=== PATIENT | male | born 1960 | race Caucasian/White ===

== ENCOUNTER 2018-01-09 17:11 | Inpatient (IN) | payer OTHER ==
[~2018-01-09] VITALS: Ht 175.3 cm; Wt 144.2 kg
[~2018-01-09 17:11] MED LIST: ALPRAZOLAM 0.50.5 MG PO; ASPIR-TRIN325 MG PO; CARDIZEM CD 18180 M3 PO; CLEOCIN T30 ML TOP; COUMADIN 4 MG TA4 M1 PO; FISH OIL 1,001000 M2 PO; HYDROCODON-ACE1 EAC7 PO; MULTIVITAMINS PO; NIACIN 500 MG500 MG PO; OLUX-E 0.05% F100 GM TP; SIMVASTATIN20 MG PO; SULFAMETHOXAZO1 EAC1 PO; ZESTORETIC 20-1 EAC3 PO
[2018-01-09] MEDS ORDERED: OMEPRAZOLE 20 M20 M1 PO (17:21)
[2018-01-09] MEDS ORDERED: CRESTOR5 MG PO (17:25)
[2018-01-09] MEDS ORDERED: HUMIRA40 MG/0.4 SUBQ (17:26)
[2018-01-09 17:56] LABS: ABSOLUTE BASOPHILS 0.1 thou/uL (0.0-0.2); ABSOLUTE EOSINOPHILS 0.3 thou/uL (0.0-0.7); ABSOLUTE LYMPHOCYTES 2.1 thou/uL (0.8-5.3); ABSOLUTE MONOCYTES 0.9 thou/uL (0.0-1.2); ABSOLUTE NEUTROPHILS 4.6 thou/uL (1.6-8.1); BASOPHILS 0.8 %; EOSINOPHILS 3.4 %; HEMATOCRIT 27.1 % (42.0-52.0); HEMOGLOBIN 8.9 gm/dL (14.0-18.0); LYMPHOCYTES 26.4 %; MCH 29.6 pg (26.0-34.0); MCHC 32.8 g/dL (28.0-37.0); MONOCYTES 10.8 %; MPV 7.4 fl. (7.2-11.1); NUCLEATED RBCS 0 /100WBC; PLATELET COUNT* 305 thou/uL (150-400); POLYS 58.6 %; RBC 3.01 mil/uL (4.50-6.00); RDW-CV 15.8 % (10.5-14.5); WBC 7.9 thou/uL (4.0-11.0)
[2018-01-09 18:05] LABS: APTT 43.2 Seconds (25.0-31.3); INR 4.5; PROTIME 45.4 Seconds (9.20-11.50)
[2018-01-09 18:07] LABS: ANION GAP 7 mmol/L (7-16); BUN 19 mg/dL (7-18); CALCIUM 8.7 mg/dL (8.5-10.1); CHLORIDE 104 mmol/L (98-107); CO2 28 mmol/L (21-32); CREATININE 1.2 mg/dL (0.6-1.3); GLUCOSE 116 mg/dL (70-99); POTASSIUM 3.4 mmol/L (3.5-5.1); SODIUM 139 mmol/L (136-145)
[2018-01-09 18:18] LABS: ALBUMIN 3.2 g/dL (3.4-5.0); ALKALINE PHOSPHATASE 32 U/L (46-116); LIPASE 87 U/L (73-393); MAGNESIUM 1.7 mg/dL (1.8-2.4); NT-PRO BRAIN NAT PEPTIDE 76 pg/mL (<300); SGOT 20 U/L (15-37); SGPT 32 U/L (30-65); TOTAL BILIRUBIN 0.4 mg/dL (<0.1-1.0); TOTAL PROTEIN 6.9 g/dL (6.4-8.2); TROPONIN-I LEVEL <0.06 ng/mL (<0.06)
[2018-01-09 21:14] VITALS: BP 104/43
[2018-01-09 21:30] VITALS: BP 121/70
[2018-01-09] MEDS ORDERED: COREG12.5 MG PO (22:23)
[2018-01-10] VITALS (7 sets, daily range): BP systolic 81–165; BP diastolic 36–71
[2018-01-10 04:29] LABS: HEMATOCRIT 22.9 % (42.0-52.0); HEMOGLOBIN 7.5 gm/dL (14.0-18.0)
[2018-01-10 04:36] LABS: CALCIUM 8.5 mg/dL (8.5-10.1); CREATININE 1.1 mg/dL (0.6-1.3); INR 3.2; MAGNESIUM 2.1 mg/dL (1.8-2.4); POTASSIUM 3.9 mmol/L (3.5-5.1); PROTIME 32.4 Seconds (9.20-11.50)
[2018-01-10 04:39] LABS: MCH 29.6 pg (26.0-34.0); MCHC 32.9 g/dL (28.0-37.0); MCV 90.1 fL (80.0-100.0); MPV 7.6 fl. (7.2-11.1); RBC 2.54 mil/uL (4.50-6.00); RDW-CV 15.8 % (10.5-14.5); WBC 5.7 thou/uL (4.0-11.0)
[2018-01-11 00:08] VITALS: BP 150/68
[2018-01-11 04:55] LABS: ABSOLUTE EOSINOPHILS 0.1 thou/uL (0.0-0.7); ABSOLUTE LYMPHOCYTES 1.8 thou/uL (0.8-5.3); ABSOLUTE MONOCYTES 0.6 thou/uL (0.0-1.2); BASOPHILS 0.6 %; EOSINOPHILS 2.6 %; HEMATOCRIT 23.7 % (42.0-52.0); HEMOGLOBIN 7.6 gm/dL (14.0-18.0); LYMPHOCYTES 32.4 %; MCHC 31.8 g/dL (28.0-37.0); MONOCYTES 11.4 %; MPV 7.9 fl. (7.2-11.1); NUCLEATED RBCS 0 /100WBC; PLATELET COUNT* 253 thou/uL (150-400); RBC 2.61 mil/uL (4.50-6.00); RDW-CV 16.1 % (10.5-14.5); WBC 5.7 thou/uL (4.0-11.0)
[2018-01-11 05:01] LABS: PROTIME 14.1 Seconds (9.20-11.50)
[2018-01-11 05:08] LABS: CALCIUM 8.5 mg/dL (8.5-10.1); POTASSIUM 4.1 mmol/L (3.5-5.1)
[2018-01-11 05:23] VITALS: BP 139/66
[2018-01-11 06:02] LABS: INR 1.4
[2018-01-11 08:55] VITALS: BP 169/76
--- NOTE | 2018-01-11 10:12 | EKG ---
[place] [address] ELECTROCARDIOGRAM REPORT Name: MARIBEL WHARTON Room: [address] ADM IN .R.#: [id number] Admission: 01/09/18 Attend Phys: Jose Florence MD Discharge: Date of : 56 Report #: [id number] THIS REPORT FOR: //name// [facility] ED Test Date: 2018-01-09 Test Time: 17:19:38 Pat Name: MARIBEL WHARTON Department: Room: [facility] Gender: Hand Coremaker: Sami LONDONO : 1960 Requested By: Patricia Emerson Order Number: [id number] MD: Jamie Chamorro Measurements Intervals [place] Rate: 56 P: 3 MO: 161 QRS: -6 QRSD: 98 T: 4 QT: 407 QTc: 393 Interpretive Statements Sinus rhythm Atrial premature complexes Compared to ECG 05/12/2008 14:10:21 Atrial premature complex(es) now present Sinus bradycardia no longer present Electronically Signed On 01-11-2018 10:12:18 SANDING MACHINE OPERATOR by Jamie Chamorro [email or web address] <ELECTRONICALLY SIGNED> By: Jamie Chamorro MD, FACC 01/11/18 1012 1719 1719 Jamie Chamorro MD, FAC /EPI
[2018-01-11 12:00] VITALS: BP 127/60
[2018-01-11 16:14] VITALS: BP 171/97
[2018-01-11 20:00] VITALS: BP 151/77
[2018-01-12 00:28] VITALS: BP 133/52
[2018-01-12 04:34] VITALS: BP 123/50
[2018-01-12 05:50] LABS: HEMATOCRIT 24.4 % (42.0-52.0); HEMOGLOBIN 7.8 gm/dL (14.0-18.0); MCH 28.9 pg (26.0-34.0); MCV 90.2 fL (80.0-100.0); MPV 7.7 fl. (7.2-11.1); RBC 2.71 mil/uL (4.50-6.00); RDW-CV 15.9 % (10.5-14.5); WBC 6.3 thou/uL (4.0-11.0)
[2018-01-12 06:02] LABS: CALCIUM 8.5 mg/dL (8.5-10.1); CREATININE 0.9 mg/dL (0.6-1.3); POTASSIUM 3.5 mmol/L (3.5-5.1)
[2018-01-12 08:30] VITALS: BP 140/83
[2018-01-12 16:54] VITALS: BP 125/62
[2018-01-12 20:00] VITALS: BP 111/57
[2018-01-13] VITALS: BP 151/70
[2018-01-13 04:00] VITALS: BP 108/49
[2018-01-13 05:30] LABS: HEMATOCRIT 24.7 % (42.0-52.0); HEMOGLOBIN 8.2 gm/dL (14.0-18.0); MCH 29.6 pg (26.0-34.0); MCV 89.8 fL (80.0-100.0); MPV 7.5 fl. (7.2-11.1); RBC 2.76 mil/uL (4.50-6.00); RDW-CV 16.5 % (10.5-14.5); WBC 5.6 thou/uL (4.0-11.0)
[2018-01-13 05:41] LABS: INR 1.1; PROTIME 11.4 Seconds (9.20-11.50)
[2018-01-13 05:56] LABS: CALCIUM 8.7 mg/dL (8.5-10.1); MAGNESIUM 1.6 mg/dL (1.8-2.4); POTASSIUM 3.6 mmol/L (3.5-5.1); TOTAL BILIRUBIN 0.3 mg/dL (<0.1-1.0); TOTAL PROTEIN 5.8 g/dL (6.4-8.2)
[2018-01-13 08:30] VITALS: BP 99/69
[2018-01-13 11:23] VITALS: BP 146/65
[2018-01-13] MEDS ORDERED: CARVEDILOL12.5 MG PO (14:19)
[2018-01-13] MEDS ORDERED: ZESTORETIC 20-1 EAC3 PO (14:19)
[2018-01-13] MEDS ORDERED: PRILOSEC 20 MG20 MG PO (14:58)
[2018-01-13 14:59] VITALS: BP 146/65
--- NOTE | 2018-01-14 16:10 | PROC ---
[address] [address] PROCEDURE REPORT Name: MARIBEL WHARTON Room: [address] IN ..#: [id number] Admission: 01/09/18 Attend Phys: Jose Florence MD Discharge: 01/13/18 Date of : 56 Report #: [id number] THIS REPORT FOR: //name// CC: Douglas Florence MD DATE OF SERVICE: 01/10/2018 REFERRING PHYSICIAN: Jose Florence MD PROCEDURE PERFORMED: Esophagogastroduodenoscopy with APC treatment of single angioectasia in the second portion of duodenum. SEDATION USED: Monitored anesthesia care with propofol. SPECIMEN RETRIEVED: None. INDICATIONS: Just pleasant 57-year-old white male who was admitted to hospital with melena and associated anemia. His INR was markedly elevated as well. He has received some vitamin K and is now in for endoscopic evaluation. See consultation for further details. PHYSICAL EXAMINATION: GENERAL: A pleasant 57-year-old gentleman who is awake and alert. CARDIOPULMONARY: Benign. ABDOMEN: Soft and not tender. No rebound or guarding noted. DESCRIPTION OF PROCEDURE: After obtaining informed consent, once the patient was adequately sedated, the Olympus video scope was advanced under direct vision into the esophagus, which appeared completely normal. There was no esophagitis, rings or webs strictures. Stomach was then entered and examined in its entirety and revealed normal appearing antrum, body, as well as cardia, fundus on retroflex examination. Pylorus widely patent revealing a normal duodenal bulb and a small AVM within the second portion of duodenum with small amount of blood noted within the same. No active bleeding was noted. A StraightFire APC probe was then advanced through the scope into the second portion of duodenum where the angioectasia was then obliterated using 20 hatfield at 1.2 L per minute. No bleeding ensued. Scope was withdrawn. The patient was sent to recovery in stable condition. IMPRESSION: 1. Single duodenal angioectasia obliterated [place] [address] PROCEDURE REPORT Name: MARIBEL WHAROTN Room: [address] IN ..#: [id number] Admission: 01/09/18 Attend Phys: Jose Florence MD Discharge: 01/13/18 Date of : 56 Report #: [id number] 2. Otherwise normal upper endoscopy. RECOMMENDATIONS: 1. We will give the patient a heart healthy diet today and hold his Coumadin at this point in time. 2. We will prep him tomorrow for colonoscopy to be done on Friday if his INR is more acceptable. I would not only want to treat any bleeding potential sites within the colon, but also remove any polyps the same time. 3. I will discuss findings and recommendations with the patient as well. He is agreeable to the same. <ELECTRONICALLY SIGNED> By: Min Gutierrez DO 01/14/18 1610 1831 0331Min Gutierrez DO /nt
--- NOTE | 2018-01-14 16:11 | CON ---
[address] [address] CONSULTATION Name: MARIBEL WHARTON Room: [address] IN .R.#: [id number] Admission: 01/09/18 Attend Phys: Jose Florence MD Discharge: 01/13/18 Date of : 56 Report #: [id number] THIS REPORT FOR: //name// CC: Douglas Florence MD DATE OF SERVICE: 01/10/2018 GI CONSULTATION REFERRING PHYSICIAN: Dr. Jose Florence REASON FOR CONSULTATION: 1. Acute anemia with associated orthostasis and associated melena -- evaluate for problems related to upper GI tract, possibly lower GI tract. 2. Elevated INR for which the patient ____ for peripheral vascular disease. 3. Hidradenitis suppurativa, recurrent chronic immunosuppression for the same. 4. Hypertension. 5. Diabetes. 6. Peripheral vascular disease. RECOMMENDATIONS: 1. We will proceed with upper endoscopy today. I have discussed the nature, risks, benefits, alternatives of the procedure with the patient as well. He is agreeable to the same. 2. Further recommendation will be made thereafter. HISTORY OF PRESENT ILLNESS: This is a very pleasant 57-year-old white male who presented to his primary care provider with complaints of shortness of breath, lightheadedness and dizziness and was found to have anemia with elevated INR. He has also had some problem with melena. He has been on chronic warfarin for lower extremity bypass. He normally gets his INR checked on a monthly basis and this is the first time he had been checked since he started his PPI. It had been controlled fairly well before that. He denies any complaints of any dysphagia, aphagia, postprandial pain or any problem with reflux or indigestion. He was recently begun on some omeprazole to see if this helps some of his cough and hoarseness by an ENT physician. He denies any problem with his bowels or bowel frequency. He states his last colonoscopy was done within the last couple of years, demonstrating a few polyps. He is admitted to the hospital for further evaluation and treatment. ALLERGIES: [place] [address] CONSULTATION Name: MARIBEL WHARTON Room: [address]#: [id number] Admission: 01/09/18 Attend Phys: Jose Florence MD Discharge: 01/13/18 Date of : 56 Report #: [id number] MEDICATIONS: At home include diltiazem, hydrocodone, aspirin, multivitamin, omeprazole, Humira, niacin, alprazolam, lisinopril with hydrochlorothiazide. He is on sulfa. He is on trimethoprim and sulfamethoxazole, topical clindamycin, warfarin, fish oil, rosuvastatin and Coreg. PAST MEDICAL AND SURGICAL HISTORY: Remarkable for hypertension and problem with heart rhythm issues, hidradenitis suppurativa and diabetes. He has had previous problems with herniated disk surgery. He has had cholecystectomy, ulnar neuropathy. He has had a fistula repair by Dr. Americo Lott. He has had previous bypass surgery and stents placed in 2009. SOCIAL HISTORY: The patient does smoke a half a pack per day, does not drink alcohol on a regular basis. FAMILY HISTORY: Negative for malignancy. PHYSICAL EXAMINATION: GENERAL: A pleasant 57-year-old gentleman who is awake and alert. CARDIOPULMONARY: Revealed a regular rate and rhythm. LUNGS: Clear. ABDOMEN: Soft, not tender. No rebound or guarding noted. LABORATORY TEST: Revealed a white count of 7.9; hemoglobin 8.9; platelet count 305,000; MCV is 90; RDW is 15.8. His protime is 45.5 with INR of 4.5. Sodium 139, potassium 3.4, chloride 104, bicarb is 28, his BUN is 19, creatinine 1.2. His GFR is 62. Total bilirubin 0.4, alkaline phosphatase is 32, AST 20, ALT 32. His albumin is 3.2. DISCUSSION: At the present time, we will proceed with upper endoscopy today and make further recommendations thereafter. I have discussed the plans with the patient as well and he is agreeable to the same. <ELECTRONICALLY SIGNED> By: Min Gutierrez DO 01/14/18 1611 1829 0255Min Gutierrez DO /nt
--- NOTE | 2018-01-16 11:13 | PATH ---
[address] [address] PATHOLOGY RPT PROCEDURE Name: MARIBEL WHARTON Room: [address] IN M.R.#: [id number] Admission: 01/09/18 Date of : 56 Discharge: 01/13/18 Report #: [id number] Path Case #: [id number] [facility] Accession Number: [id number] . 01 Material submitted: . MID-TRANSVERSE COLON POLYP . 01 Clinical history: . None provided . 02 Diagnosis: Mid transverse colon polyp, biopsy: - Tubular adenoma, negative for high-grade dysplasia. (MAP:[facility] 01/14/2018) QTP/01/14/2018 . 02 Electronically signed: . Jamie Tello MD, Pathologist NPI- [id number] . 01 Gross description: . Received in formalin labeled "Maribel Wharton, mid transverse colon polyp," is a single segment of monae soft tissue measuring 0.5 cm in maximum dimension. The specimen is entirely submitted in cassette A1. (TSD; 01/12/2018) TOB/TOB . 02 Pathologist provided ICD-10: D12.3 . 02 CPT . 146735 Specimen Comment: A courtesy copy of this report has been sent to Specimen Comment: [phone], . Specimen Comment: Report sent to / DR GARDINER Specimen Comment: A duplicate report has been generated due to demographic updates. Performed at: [address] [facility] [id number] MD Angel Garsia MD Phone: [phone] Performed at: 02 [facility] [id number] [place] [id number] MD Sandy Mejia MD Phone: [phone]
== END 2018-01-13 15:36 | disposition home or self-care (01) | DRG 813 ==
LOC: M.ERS 17:11 → M.2W 19:33 → M.TBA-ER 19:33 → M.2W 21:44
PROVIDERS: Internal Medicine; Internal Medicine Gastroenterology; Physician Assistant; ADMIT Family Medicine
PROC: 0W3P8ZZ Control Bleeding in Gastrointestinal Tract, Via Natural or Artificial Opening Endoscopic (ICD-10-PCS; principal; 2018-01-10)
PROC: 0DBL8ZZ Excision of Transverse Colon, Via Natural or Artificial Opening Endoscopic (ICD-10-PCS; 2018-01-12)
DX: D68.32 Hemorrhagic disorder due to extrinsic circulating anticoagulants (principal); K31.811 Angiodysplasia of stomach and duodenum with bleeding; D62 Acute posthemorrhagic anemia; R00.1 Bradycardia, unspecified; I95.2 Hypotension due to drugs; I10 Essential (primary) hypertension; E78.5 Hyperlipidemia, unspecified; E11.51 Type 2 diabetes mellitus with diabetic peripheral angiopathy without gangrene; L73.2 Hidradenitis suppurativa; D12.3 Benign neoplasm of transverse colon; K57.30 Diverticulosis of large intestine without perforation or abscess without bleeding; T50.905A Adverse effect of unspecified drugs, medicaments and biological substances, initial encounter; F17.210 Nicotine dependence, cigarettes, uncomplicated; K64.9 Unspecified hemorrhoids; T45.515A Adverse effect of anticoagulants, initial encounter; Y92.89 Other specified places as the place of occurrence of the external cause; Z90.49 Acquired absence of other specified parts of digestive tract; Z95.820 Peripheral vascular angioplasty status with implants and grafts; Z79.01 Long term (current) use of anticoagulants; Z79.82 Long term (current) use of aspirin; Z79.899 Other long term (current) drug therapy; Z88.8 Allergy status to other drugs, medicaments and biological substances; Z82.49 Family history of ischemic heart disease and other diseases of the circulatory system

== ENCOUNTER 2020-04-23 14:35 | Inpatient (IN) | payer OTHER ==
[~2020-04-23] VITALS: Ht 175.3 cm; Wt 134.1 kg
--- NOTE | ~2020-04-23 | H ---
[address] [address] HISTORY AND PHYSICAL Name: MARIBEL WHARTON Room: [address] IN M.R.#: [id number] Admission: 04/23/20 Attend Phys: Anthony Garcia MD Discharge: Date of : 56 Report #: [id number] THIS REPORT FOR: cc: Douglas Carrillo Bradley L. DO ~ [facility],Medical Records Staff For GI report, please see the Provation report in Perceptive 7 content. By: 1234Medical Records Staff [facility] /ZULLY
[~2020-04-23 14:35] MED LIST changes: +CARVEDILOL12.5 MG PO; +COREG12.5 MG PO; +CRESTOR5 MG PO; +HUMIRA40 MG/0.4 SUBQ; +OMEPRAZOLE 20 M20 M1 PO; +PRILOSEC 20 MG20 MG PO
[2020-04-23 14:42] VITALS: BP 110/51
[2020-04-23] MEDS ORDERED: JANTOVEN3 MG PO (14:47)
[2020-04-23] MEDS ORDERED: MINOCYCLINE HC100 M2 PO (14:47)
[2020-04-23 15:42] LABS: ABSOLUTE BASOPHILS 0.1 thou/uL (0.0-0.2); ABSOLUTE EOSINOPHILS 0.3 thou/uL (0.0-0.7); ABSOLUTE LYMPHOCYTES 2.1 thou/uL (0.8-5.3); ABSOLUTE MONOCYTES 1.1 thou/uL (0.0-1.2); ABSOLUTE NEUTROPHILS 6.2 thou/uL (1.6-8.1); BASOPHILS 1.2 %; EOSINOPHILS 3.5 %; HEMATOCRIT 28.5 % (42.0-52.0); HEMOGLOBIN 9.5 gm/dL (14.0-18.0); LYMPHOCYTES 21.5 %; MCH 29.2 pg (26.0-34.0); MCHC 33.3 g/dL (28.0-37.0); MCV 87.6 fL (80.0-100.0); MONOCYTES 10.7 %; MPV 7.3 fl. (7.2-11.1); NUCLEATED RBCS 0 /100WBC; PLATELET COUNT* 313 thou/uL (150-400); POLYS 63.1 %; RBC 3.25 mil/uL (4.50-6.00); RDW-CV 16.2 % (10.5-14.5); WBC 9.9 thou/uL (4.0-11.0)
[2020-04-23 15:51] LABS: CALCIUM 9.1 mg/dL (8.5-10.1); CREATININE 1.4 mg/dL (0.6-1.3)
[2020-04-23 15:52] LABS: APTT 38.9 Seconds (25.0-31.3); INR 2.7; PROTIME 27.4 Seconds (9.20-11.50)
[2020-04-23 16:02] LABS: ALBUMIN 2.8 g/dL (3.4-5.0); TOTAL BILIRUBIN 0.5 mg/dL (<0.1-1.0); TOTAL PROTEIN 6.5 g/dL (6.4-8.2)
[2020-04-23 16:05] LABS: POTASSIUM 2.9 mmol/L (3.5-5.1)
[2020-04-23 18:45] VITALS: BP 116/58
[2020-04-23 18:50] LABS: % SATURATION 4 % (20-39); IRON 16 ug/dL (50-175)
[2020-04-23 22:05] VITALS: BP 124/75
[2020-04-23 22:08] VITALS: BP 123/64
[2020-04-23 22:10] VITALS: BP 85/49
[2020-04-23 23:43] VITALS: BP 109/51
[2020-04-24 04:20] LABS: HEMATOCRIT 26.2 % (42.0-52.0); HEMOGLOBIN 8.5 gm/dL (14.0-18.0); MCH 28.8 pg (26.0-34.0); MCHC 32.5 g/dL (28.0-37.0); MCV 88.5 fL (80.0-100.0); MPV 7.5 fl. (7.2-11.1); RBC 2.96 mil/uL (4.50-6.00); RDW-CV 16.1 % (10.5-14.5); WBC 8.3 thou/uL (4.0-11.0)
[2020-04-24 04:23] VITALS: BP 121/56
[2020-04-24 04:32] LABS: CALCIUM 8.5 mg/dL (8.5-10.1); CREATININE 1.1 mg/dL (0.6-1.3); INR 2.7; PROTIME 27.3 Seconds (9.20-11.50)
[2020-04-24 08:00] VITALS: BP 103/56
[2020-04-24 11:57] VITALS: BP 98/47
--- NOTE | 2020-04-24 13:27 | 2DMMODE ---
[place] [address] 2 D/M-MODE ECHOCARDIOGRAM Name: MARIBEL WHARTON Room: [address] IN [facility].#: [id number] Admission: 04/23/20 Attend Phys: Anthony Garcia, Discharge: Date of : 56 Date of Service: 04/24/20 1327 Report #: [id number] THIS REPORT FOR: cc: Douglas Carrillo Bradley L. DO Holkins,Wild Rodriguez MD [facility] ~ APPROVED REPORT Study performed: 04/24/2020 09:14:39 EXAM: Comprehensive 2D, Doppler, and color-flow Echocardiogram/ Bubble Study Patient Location: In-Patient Room #: 224 BSA: 2.14 HR: 63 bpm BP: 121/56 mmHg Other Information Study Quality: Good Indications CVA/TIA Echo Enhancing Agent Indication: Rule out Shunt Agent(s) / Amount(s) Used: Agitated Saline 10 cc 2D Dimensions IVSd: 10.86 (7-11mm) LVOT Diam: 21.67 (18-24mm) LVDd: 52.13 mm PWd: 9.30 (7-11mm) Ascending Ao: 37.10 (22-36mm) LVDs: 28.93 (25-40mm) Aortic Root: 30.61 mm Volumes Left Atrial Volume (Systole) LA ESV Index: 19.90 mL/m2 Aortic Valve AoV Peak King.: 1.58 m/s AO Peak Gr.: 9.94 mmHg LVOT Max P.04 mmHg AO Mean Gr.: 5.58 mmHg LVOT Mean P.70 mmHg LVOT Max V: 1.42 m/[place] [address] 2 D/M-MODE ECHOCARDIOGRAM Name: MARIBEL WHARTON Room: [address] IN M.R.#: [id number] Admission: 04/23/20 Attend Phys: Anthony Garcia, Discharge: Date of : 56 Date of Service: 04/24/20 1327 Report #: [id number] AO V2 VTI: 26.57 cm LVOT Mean V: 0.87 m/s CHIRAG (VTI): 3.87 cm2 LVOT V1 VTI: 27.89 cm Mitral Valve E/A Ratio: 0.91 MV Decel. Time: 184.40 ms MV E Max King.: 0.70 m/s MV PHT: 53.48 ms MVA (PHT): 4.11 cm2 TDI E/Lateral E': 5.83 E/Medial E': 6.36 Medial E' King.: 0.11 m/s Lateral E' King.: 0.12 m/s Pulmonary Valve PV Peak King.: 1.47 m/s PV Peak Gr.: 8.68 mmHg Left Ventricle The left ventricle is normal size. There is normal LV segmental wall motion. There is normal left ventricular wall thickness. Left ventricular systolic function is normal. The left ventricular ejection fraction is within the normal range. LVEF is 60%. Right Ventricle The right ventricle is normal size. The right ventricular systolic function is normal. Atria The left atrium size is normal. Injection of bubbles documented no interatrial shunt. The right atrium size is normal. Aortic Valve The aortic valve is normal in structure. No aortic regurgitation is present. There is no aortic valvular stenosis. Mitral Valve The mitral valve is normal in structure. There is no mitral valve regurgitation noted. No evidence of mitral valve stenosis. Tricuspid Valve The tricuspid valve is normal in structure. There is no tricuspid valve regurgitation noted. Pulmonic Valve The pulmonary valve is normal in structure. [place] [address] 2 D/M-MODE ECHOCARDIOGRAM Name: MARIBEL WHARTON Room: [address] IN .#: [id number] Admission: 04/23/20 Attend Phys: Anthony Garcia, Discharge: Date of : 56 Date of Service: 04/24/20 1327 Report #: [id number] valvular regurgitation. Great Vessels The aortic root is normal in size. IVC is normal in size and collapses >50% with inspiration. Pericardium There is no pericardial effusion. <Conclusion> The left ventricle is normal size. There is normal left ventricular wall thickness. Left ventricular systolic function is normal. The left ventricular ejection fraction is within the normal range. LVEF is 60%. The right ventricle is normal size. The left atrium size is normal. The aortic valve is normal in structure. The mitral valve is normal in structure. The tricuspid valve is normal in structure. IVC is normal in size and collapses >50% with inspiration. There is no pericardial effusion. There is normal LV segmental wall motion. Injection of bubbles documented no interatrial shunt. <ELECTRONICALLY SIGNED> By: Wild Mcfadden MD, FACC 04/24/201326 26 26 Wild Mcfadden MD, FACC /INF
--- NOTE | 2020-04-24 13:58 | EKG ---
[place] [address] ELECTROCARDIOGRAM REPORT Name: MARIBEL WHARTON Room: [address] ADM IN M.R.#: [id number] Admission: 04/23/20 Attend Phys: Anthony Garcia, Discharge: Date of : 56 Date of Service: 04/23/20 1449 Report #: [id number] THIS REPORT FOR: //name// [facility] ED Test Date: 2020-04-23 Test Time: 14:49:45 Pat Name: MARIBEL WHARTON Department: Room: [facility] Gender: M Insurance Associate: : 1960 Requested By: Lowell Fletcher Order Number: [id number] MD: Wild Mcfadden Measurements Intervals [place]unt Rate: 58 P: 54 CO: 169 QRS: -7 QRSD: 103 T: 31 QT: 417 QTc: 410 Interpretive Statements Sinus arrhythmia Compared to ECG 01/09/2018 17:19:38 Sinus arrhythmia is noted Atrial premature complex(es) no longer present Electronically Signed On 04-24-2020 13:57:52 CLEANING MACHINE OPERATOR by Wild Mcfadden [email or web address] <ELECTRONICALLY SIGNED> By: Wild Mcfadden MD, [facility] 04/24/20 1357 1449 1449 Wild Mcfadden MD, [facility] /EPI
[2020-04-24 16:29] VITALS: BP 129/63
[2020-04-24 23:52] VITALS: BP 112/69
[2020-04-25 03:46] VITALS: BP 114/52
[2020-04-25 04:41] LABS: CALCIUM 8.5 mg/dL (8.5-10.1); CREATININE 0.9 mg/dL (0.6-1.3); MAGNESIUM 1.8 mg/dL (1.8-2.4); POTASSIUM 3.6 mmol/L (3.5-5.1)
[2020-04-25 04:43] LABS: HEMATOCRIT 25.5 % (42.0-52.0); HEMOGLOBIN 8.4 gm/dL (14.0-18.0); MCH 28.8 pg (26.0-34.0); MCV 87.3 fL (80.0-100.0); MPV 7.6 fl. (7.2-11.1); RBC 2.92 mil/uL (4.50-6.00); RDW-CV 15.8 % (10.5-14.5); WBC 7.2 thou/uL (4.0-11.0)
[2020-04-25 07:00] LABS: INR 2.1; PROTIME 20.9 Seconds (9.20-11.50)
[2020-04-25 08:00] VITALS: BP 120/59
[2020-04-25 11:36] VITALS: BP 125/56
[2020-04-25 11:38] VITALS: BP 120/56
[2020-04-25 11:40] VITALS: BP 91/65
[2020-04-25 23:44] VITALS: BP 143/70
[2020-04-26 04:00] VITALS: BP 129/78
[2020-04-26 04:11] LABS: HEMOGLOBIN 8.5 gm/dL (14.0-18.0); MCH 28.6 pg (26.0-34.0); MCHC 32.7 g/dL (28.0-37.0); MCV 87.4 fL (80.0-100.0); MPV 7.8 fl. (7.2-11.1); RBC 2.97 mil/uL (4.50-6.00); WBC 7.6 thou/uL (4.0-11.0)
[2020-04-26 04:21] LABS: INR 1.6
[2020-04-26 04:32] LABS: ALBUMIN 2.5 g/dL (3.4-5.0); CALCIUM 8.8 mg/dL (8.5-10.1); CREATININE 0.9 mg/dL (0.6-1.3); MAGNESIUM 1.8 mg/dL (1.8-2.4); POTASSIUM 3.6 mmol/L (3.5-5.1); TOTAL BILIRUBIN 0.3 mg/dL (<0.1-1.0); TOTAL PROTEIN 5.5 g/dL (6.4-8.2)
[2020-04-26 08:00] VITALS: BP 142/69
[2020-04-26 09:16] VITALS: BP 142/69
[2020-04-26 11:30] VITALS: BP 116/59
[2020-04-26 15:09] LABS: GLOBULIN TOTAL 2.9 g/dL (2.2-3.9); M-SPIKE Not Observed g/dL (Not Observed)
[2020-04-26 16:30] VITALS: BP 136/73
[2020-04-26 19:25] VITALS: BP 136/70
[2020-04-27 00:48] VITALS: BP 162/89
[2020-04-27 04:33] LABS: HEMATOCRIT 25.8 % (42.0-52.0); HEMOGLOBIN 8.3 gm/dL (14.0-18.0); MCH 28.4 pg (26.0-34.0); MCHC 32.4 g/dL (28.0-37.0); MCV 87.9 fL (80.0-100.0); MPV 7.7 fl. (7.2-11.1); RBC 2.93 mil/uL (4.50-6.00); RDW-CV 16.4 % (10.5-14.5); WBC 6.6 thou/uL (4.0-11.0)
[2020-04-27 04:40] VITALS: BP 148/75
[2020-04-27 05:12] LABS: ALBUMIN 2.4 g/dL (3.4-5.0); CALCIUM 8.4 mg/dL (8.5-10.1); CREATININE 0.8 mg/dL (0.6-1.3); MAGNESIUM 1.8 mg/dL (1.8-2.4); POTASSIUM 3.3 mmol/L (3.5-5.1); TOTAL BILIRUBIN 0.3 mg/dL (<0.1-1.0); TOTAL PROTEIN 5.8 g/dL (6.4-8.2)
[2020-04-27 07:05] LABS: URINE BILIRUBIN NEGATIVE (Negative); URINE BLOOD NEGATIVE (Negative); URINE CLARITY CLEAR; URINE COLOR YELLOW; URINE GLUCOSE-RANDOM NEGATIVE (Negative); URINE KETONES NEGATIVE (Negative); URINE LEUKOCYTES-REFLEX NEGATIVE (Negative); URINE NITRITE-REFLEX NEGATIVE (Negative); URINE PROTEIN NEGATIVE (Negative); URINE SPECIFIC GRAVITY <= 1.005 (1.005-1.030); URINE UROBILINOGEN 0.2 E.U./dl (0.2-1.0)
[2020-04-27 08:00] VITALS: BP 128/72
--- NOTE | 2020-04-27 09:00 | CON ---
[address] [address] CONSULTATION Name: MARIBEL WHARTON Room: [address] IN .R.#: [id number] Admission: 04/23/20 Attend Phys: Anthony Garcia MD Discharge: Date of : 56 Report #: [id number] THIS REPORT FOR: cc: Douglas Carrillo Bradley L. DO ~ Ladonna Shelby MD DATE OF SERVICE: 04/24/2020 REQUESTING PHYSICIAN: Dr. Garcia. REASON FOR CONSULTATION: 1. Question regarding anticoagulation. 2. Anemia. 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 The patient has been on anticoagulation with Coumadin for about 10 years. He is admitted to the hospital now with complaints of dizziness, weakness. He presented to Emergency Room with above-mentioned complaints. He is found to have significant anemia. Anticoagulation has stopped. Hematology consult is requested. He is feeling somewhat better. He is currently receiving intravenous iron infusion. He states that he has history of iron deficiency anemia. He has had a colonoscopy 2 years ago. He was admitted to the hospital with iron deficiency anemia. IV iron was given. He does not have a history of venous thrombosis. He states he has been on Coumadin for 20 years, clinical molecular geneticist manages his chronic anticoagulation. He reports having nausea and dry heaves last 2-3 months. He states that he lost "50 pounds." He does complains of melena. Denies cough, shortness of breath. PAST MEDICAL HISTORY: Significant for anemia, hypertension, peripheral vascular disease, chronic anticoagulation, hidradenitis suppurativa. He is on Humira for that under the care of Dermatology. SOCIAL HISTORY: Lives with his . He smokes half pack a day, has been smoking for more than 30 years. Does not drink alcohol excessively. FAMILY HISTORY: Noncontributory. REVIEW OF SYSTEMS: See above. PHYSICAL EXAMINATION: GENERAL: Reveals mildly obese, overweight man, not in acute distress. VITAL SIGNS: Blood pressure 103/56, heart rate 61, temperature 98.0, [place] [address] CONSULTATION Name: MARIBEL WHARTON Room: [address]#: [id number] Admission: 04/23/20 Attend Phys: Anthony Garcia MD Discharge: Date of : 56 Report #: [id number] respirations 16. HEENT: Neck is supple. No thrush. HEART: Normal S1, S2. LUNGS: Clear. ABDOMEN: Obese. EXTREMITIES: Lower extremities, no edema. SKIN: Does not reveal any rash. There is no peripheral lymphadenopathy. MENTAL STATUS: Alert and oriented x 3. LABORATORY DATA: White count 8.3, hemoglobin 8.5, MCV 88.5, platelets 262. PT 27.2, INR 2.7. Sodium 145, potassium 3.0, BUN 22, creatinine 1.1, total protein 6.5, albumin 2.8. TIBC 362. Ferritin 11, folic acid 38.4. B12 of 832. ASSESSMENT AND PLAN: 1. Anticoagulation. The patient does not report having any venous thrombosis. I am planning to order anticardiolipin antibodies to make sure he does not have a history of lupus anticoagulant syndrome, although he does not believe so. I am planning to check a homocysteine level. I agreed to discontinue Coumadin because of history of bleeding and iron deficiency. 2. Iron deficiency anemia. The patient reports a significant weight loss. Agree with GI evaluation. The patient believes he is scheduled to have colonoscopy and EGD. 3. Weight loss. We will await GI workup results. If this does not show any significant abnormality suggestive of etiology of weight loss, we will consider CT of chest, abdomen and pelvis. I am planning to order serum protein electrophoresis. Thank you very much for allowing me to participate in care of this patient. We will follow the patient with you. <ELECTRONICALLY SIGNED> By: Ladonna Shelby MD 04/27/20 0900 2336 0018Ladonna Shelby MD /nt
[2020-04-27] MEDS ORDERED: IRON160 M1 PO (09:01)
[2020-04-27 10:57] VITALS: BP 128/72
--- NOTE | 2020-04-28 13:57 | IN ---
[address] [address] INTERIM NOTE Name: MARIBEL WHARTON Room: [address] IN .R.#: [id number] Admission: 04/23/20 Attend Phys: Anthony Garcia MD Discharge: 04/27/20 Date of : 56 Report #: [id number] THIS REPORT FOR: cc: Douglas Carrillo Bradley L. DO ~ Ladonna Shelby MD DATE OF SERVICE: 04/27/2020 LOCATION: The patient was in room 224. SUBJECTIVE: The patient is doing much better. He does not have complaints of chest pain. Denies nausea or vomiting. He had EGD done, which did not demonstrate any suspicious mass. He has dysmotility. He denies chest pain. He is being discharged home today. OBJECTIVE: VITAL SIGNS: Blood pressure 128/72, heart rate is 69, temperature 98.7, respirations 16. NECK: Supple. HEART: Normal S1, S2. LUNGS: Clear. ABDOMEN: Obese. No organomegaly. EXTREMITIES: Does not reveal any swelling. SKIN: Does not reveal rash. There is no peripheral lymphadenopathy. MENTAL STATUS: Alert and oriented x 3. LABORATORY DATA: White count 6.6, hemoglobin 8.3, platelets 247. Serum protein electrophoresis negative. Anticardiolipin antibodies IgG and IgM normal. Homocysteine 11.9. Prothrombin gene mutation negative. CT of abdomen shows diverticulosis in sigmoid. CT of chest negative. ASSESSMENT AND PLAN: 1. Anticoagulation. The patient does not have any abnormality including risk of venous or arterial thrombosis at this point. He does have peripheral vascular disease. Recommend discontinue Coumadin. Consider antiplatelet agent. 2. Weight loss. CT of abdomen and pelvis and chest does not show any abnormality. Continue to monitor his weight loss. If he continues to lose weight, he will discuss this with primary care physician. 3. Iron deficiency anemia, received IV iron. Agree with management. <ELECTRONICALLY SIGNED> By: Ladonna Shelby MD 04/28/20 1357 10 0048Ladonna Shelby MD /nt
--- NOTE | 2020-04-28 18:06 | PATH ---
[address] [address] PATHOLOGY RPT PROCEDURE Name: MARIBEL WHARTON Room: [address] IN M.R.#: [id number] Admission: 04/23/20 Date of : 56 Discharge: 04/27/20 Report #: [id number] Path Case #: [id number] [facility] Accession Number: [id number] . 01 Material submitted: . gastrointestinal site - GASTRIC BIOPSY FOR H.PYLORI . 01 Clinical history: . EGD . 02 Diagnosis: Gastric biopsies: - Mild chronic gastritis, typical of reactive gastropathy (chemical gastritis), negative for Helicobacter pylori organisms and dysplasia. . (ARLYN:grecia; 04/28/2020) [facility] 04/28/2020 1023 Local . 02 Comment: Special stain: H. pylori immuno . (ARLYN:grecia; 04/28/2020) . 02 Electronically signed: . Reynaldo Jeffries MD, Pathologist NPI- [id number] . 01 Gross description: . The specimen is received in formalin, labeled "Maribel Wharton, gastric biopsies for H. pylori". Received are two segments of pale monae soft tissue measuring 0.3 cm each in maximum dimensions. The specimen is submitted entirely in cassette A1. (CAA; 04/27/2020) QA/QA 04/27/2020 1045 Local . 02 Pathologist provided ICD-10: K29.50 . 02 CPT . 041162, [id number] Specimen Comment: A courtesy copy of this report has been sent to [phone] Specimen Comment: Report sent to , / Performed at: [address] [id number] MD Lee Evans MD Phone: [phone] Performed at: 02 [place] [address] PATHOLOGY RPT PROCEDURE Name: MARIBEL WHARTON Room: [address] IN M.R.#: [id number] Admission: 04/23/20 Date of : 56 Discharge: 04/27/20 Report #: [id number] Path Case #: [id number] [address] [place], [place] [id number] MD Reynaldo Jeffries MD Phone: [phone]
[2020-05-01 21:06] LABS: URINE PROTEIN (MG/DL) 9.2 mg/dL (Not Estab.)
== END 2020-04-27 13:40 | disposition home or self-care (01) | DRG 811 ==
LOC: M.ERS 14:35 → M.TBA-ER 16:56 → M.2W 18:14 → M.TBA-ER 18:14 → M.2W 18:44
PROVIDERS: Emergency Medicine Emergency Medical Services; Internal Medicine; Internal Medicine Hematology & Oncology; ADMIT Internal Medicine; ATTEND Internal Medicine
PROC: 0DB68ZX Excision of Stomach, Via Natural or Artificial Opening Endoscopic, Diagnostic (ICD-10-PCS; principal; 2020-04-26)
DX: D62 Acute posthemorrhagic anemia (principal); N17.0 Acute kidney failure with tubular necrosis; Z68.41 Body mass index [BMI] 40.0-44.9, adult; E44.0 Moderate protein-calorie malnutrition; I95.2 Hypotension due to drugs; K29.70 Gastritis, unspecified, without bleeding; Z20.822 Contact with and (suspected) exposure to COVID-19; I10 Essential (primary) hypertension; E78.5 Hyperlipidemia, unspecified; E11.51 Type 2 diabetes mellitus with diabetic peripheral angiopathy without gangrene; I25.10 Atherosclerotic heart disease of native coronary artery without angina pectoris; F41.1 Generalized anxiety disorder; G89.29 Other chronic pain; E66.9 Obesity, unspecified; F17.210 Nicotine dependence, cigarettes, uncomplicated; T50.905A Adverse effect of unspecified drugs, medicaments and biological substances, initial encounter; E87.6 Hypokalemia; K21.9 Gastro-esophageal reflux disease without esophagitis; R63.4 Abnormal weight loss; R13.10 Dysphagia, unspecified; K59.00 Constipation, unspecified; K22.4 Dyskinesia of esophagus; Z95.820 Peripheral vascular angioplasty status with implants and grafts; Z88.8 Allergy status to other drugs, medicaments and biological substances; Y92.89 Other specified places as the place of occurrence of the external cause; Z79.01 Long term (current) use of anticoagulants; Z79.82 Long term (current) use of aspirin; Z79.899 Other long term (current) drug therapy; Z82.49 Family history of ischemic heart disease and other diseases of the circulatory system